=== PATIENT | male | born 1955 | race Caucasian/White ===

== ENCOUNTER 2017-01-31 07:05 | Emergency (ER) | payer OTHER ==
[~2017-01-31] VITALS: Ht 172.7 cm; Wt 101.8 kg
[~2017-01-31 07:05] MED LIST: ASPI81TA82 PO; CIAL20TA PO; COZA50TA PO; GLIP5 PO; LIPI10TA PO; METF-324 PO; OMEP20TA PO; TEST200I13 IM
[2017-01-31 07:21] VITALS: BP 125/78; PULSE 64; RESP 18; TEMP 100; O2SAT 96
[2017-01-31] MEDS ORDERED: TEST200I12 IM (07:35)
[2017-01-31] MEDS ORDERED: CIAL20TA PO (07:35)
[2017-01-31] MEDS ORDERED: MULTTAB67 PO (07:35)
[2017-01-31] MEDS ORDERED: GLIP10TA6 PO (07:35)
[2017-01-31] MEDS ORDERED: LIPI10TA PO (07:35)
[2017-01-31] MEDS ORDERED: METF1000 PO (07:35)
[2017-01-31] MEDS ORDERED: GEMF600T PO (07:36)
[2017-01-31] MEDS ORDERED: OMEP20TA PO (07:36)
[2017-01-31] MEDS ORDERED: CART300C PO (07:36)
[2017-01-31] MEDS ORDERED: APIX5TAB PO (07:36)
[2017-01-31 07:38] LABS: MEAN CORPUSCULAR HGB CONC 29.9 % (32.0-36.0)
[2017-01-31] MEDS ORDERED: SODIUM CHLOR 0.9% 1000 ML INJ 1,000 ML IV ONE (07:45)
[2017-01-31] MEDS ORDERED: PROMETHAZINE INJ 25 MG/ML VIAL IM ONE (07:45)
[2017-01-31] MEDS ORDERED: ONDANSETRON HCL 4 MG/2 ML VIAL IVP ONE (07:45)
--- NOTE | 2017-01-31 07:48 | PD ---
HPI Chief Complaint: GI Complaint Time Seen by Provider: 07:27 Travel History International Travel<30 days: No Contact w/Intl Traveler<30days: No Traveled to known affect area: No History of Present Illness HPI This patient complains of nausea vomiting and diarrhea. Started yesterday at 7: 30 PM. Duration 12 hours. Severity symptoms is moderate. No alleviating factors. He's had multiple episodes of vomiting and diarrhea. He is not having abdominal pain or any esophageal pain. His is here as a patient with the exact same symptoms. No presyncopal symptoms. PFSH Past Medical History Atrial Fibrillation: Yes High Cholesterol: Yes Diabetes: Yes Patient Takes Glucophage: Yes Diminished Hearing: No GERD: Yes Hypertension: Yes Immunizations Current: Yes Tetanus Vaccination: < 5 Years Influenza Vaccination: Yes Past Surgical History Appendectomy: Yes (AGE 15) Other Surgery: Yes (EYE) Social History Alcohol Use: Yes (3OZ DAILY) Tobacco Use: No Substance Use: No Allergies-Medications (Allergen,Severity, Reaction): Coded Allergies: No Known Allergies (Unverified , 01/31/17) Reported Meds & Prescriptions Reported Meds & Active Scripts Active Reported Gemfibrozil 600 Mg Tab 600 Mg PO BIDAC Take 30 minutes prior to breakfast and dinner. Cartia Xt (Diltiazem ER 24 HR) 300 Mg Caper 300 Mg PO DAILY Omeprazole 20 Mg Tab 20 Mg PO DAILY Eliquis (Apixaban) 5 Mg Tab 5 Mg PO BID Testosterone Cypionate Inj (Testosterone Cypionate) 200 Mg/Ml Inj 200 Mg IM WEEKLY Multiple Vitamin 1 Tab 1 Tab PO DAILY Lipitor (Atorvastatin Calcium) 10 Mg Tab 10 Mg PO HS Cialis (Tadalafil) 20 Mg Tab 20 Mg PO DAILY PRN Do not exceed 1 dose/day. Glipizide 10 Mg Tab 10 Mg PO DAILY Take 30 minutes before a meal Metformin (Metformin HCl) 1,000 Mg Tab 1,000 Mg PO BIDPC With meals Review of Systems General / Constitutional: No: Fever Eyes: No: Visual changes HENT: No: Headaches Cardiovascular: No: Chest Pain or Discomfort Respiratory: No: Shortness of Breath Gastrointestinal: Positive: Nausea, Vomiting, Diarrhea, No: Abdominal Pain Genitourinary: No: Dysuria Musculoskeletal: No: Pain Skin: No Rash Neurologic: No: Weakness Psychiatric: No: Depression Endocrine: No: Polydipsia Hematologic/Lymphatic: No: Easy Bruising Physical Exam Narrative GENERAL: Well-nourished, well-developed patient in no apparent distress. SKIN: Focused skin assessment reveals no rash and nodules. Skin is Warm and dry. HEAD: Atraumatic. Normocephalic. EYES: Pupils equal and round. No scleral icterus. No injection or drainage. ENT: No nasal bleeding or discharge. Mucous membranes pink and moist. NECK: Trachea midline. No JVD. No meningeal signs CARDIOVASCULAR: Regular rate and rhythm. No murmur appreciated. RESPIRATORY: No accessory muscle use. Clear to auscultation. Breath sounds equal bilaterally. GASTROINTESTINAL: Abdomen soft, non-tender, nondistended. Hepatic and splenic margins not palpable. MUSCULOSKELETAL: No obvious deformities. No clubbing. No cyanosis. No edema. NEUROLOGICAL: Awake and alert. No obvious cranial nerve deficits. Motor grossly within normal limits. Normal speech. PSYCHIATRIC: Appropriate mood and affect; insight and judgment normal. Data Data Last Documented VS Vital Signs Date Time Temp Pulse Resp B/P Pulse Ox O2 Delivery O2 Flow Rate FiO2 01/31/17 07:31 01/31/17 07:21 100.0 64 18 96 Orders Iv Access Insert/Monitor (01/31/17 07:37) Complete Blood Count With Diff (01/31/17 07:37) Basic Metabolic Panel (Bmp) (01/31/17 07:37) Ondansetron Inj (Zofran Inj) (01/31/17 07:45) Sodium Chlor 0.9% 1000 Ml Inj (Ns 1000 M (01/31/17 07:45) Promethazine Inj (Phenergan Inj) (01/31/17 07:45) Labs Laboratory Tests Test 01/31/17 07:45 White Blood Count 6.9 TH/MM3 Red Blood Count 6.14 MIL/MM3 Hemoglobin 13.0 GM/DL Hematocrit 43.3 % Mean Corpuscular Volume 70.6 FL Mean Corpuscular Hemoglobin 21.1 PG Mean Corpuscular Hemoglobin 29.9 % Concent Red Cell Distribution Width 17.5 % Platelet Count 214 TH/MM3 Mean Platelet Volume 8.5 FL Neutrophils (%) (Auto) 84.4 % Lymphocytes (%) (Auto) 6.3 % Monocytes (%) (Auto) 6.3 % Eosinophils (%) (Auto) 0.3 % Basophils (%) (Auto) 2.7 % Neutrophils # (Auto) 5.9 TH/MM3 Lymphocytes # (Auto) 0.4 TH/MM3 Monocytes # (Auto) 0.4 TH/MM3 Eosinophils # (Auto) 0.0 TH/MM3 Basophils # (Auto) 0.2 TH/MM3 CBC Comment AUTO DIFF Sodium Level 139 MEQ/L Potassium Level 4.3 MEQ/L Chloride Level 103 MEQ/L Carbon Dioxide Level 27.1 MEQ/L Anion Gap 9 MEQ/L Blood Urea Nitrogen 23 MG/DL Creatinine 1.20 MG/DL Estimat Glomerular Filtration 61 ML/MIN Rate Random Glucose 220 MG/DL Calcium Level 8.3 MG/DL [facility] Medical Decision Making Medical Screen Exam Complete: Yes Emergency Medical Condition: Yes Medical Record Reviewed: Yes Differential Diagnosis Gastroenteritis, food poisoning, colitis, dehydration Narrative Course I have reviewed the patient's electronic medical record. 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 He is not hypotensive or tachycardic or having any pain IV placed I gave him 1 L normal saline IV and IV Zofran and IM Phenergan CBC is normal Metabolic profile shows minor hyperglycemia of 220 Abdomen is soft and benign and nontender Patient's had no vomiting while here. He is now euvolemic. Gradual resolution is expected. I think he has a gastroenteritis Diagnosis Primary Impression: Nausea vomiting and diarrhea Additional Instructions: The patient was advised to follow up with their physician and return if they worsen. I have recommended clear liquids for 24 hours, then gradually advance as tolerated. Med/Other Pt SpecificInfo: Prescription(s) given Scripts Ondansetron (Zofran)4 Mg Tab4 Mg PO Q6HR PRN (NAUSEA OR VOMITING) #12 TAB Ref 0 Prov:Toño Hernandez MD 01/31/17 Disposition: 01 DISCHARGE HOME Condition: Stable Toño Hernandez MD Jan 31, 2017 07:48
[2017-01-31 07:54] LABS: AUTOMATED NEUTROPHIL # 5.9 TH/MM3 (1.8-7.7); BASOPHIL # 0.2 TH/MM3 (0-0.2); BASOPHIL % 2.7 % (0.0-2.0); EOSINOPHIL % 0.3 % (0.0-4.0); HEMATOCRIT 43.3 % (39.0-51.0); LYMPH % 6.3 % (9.0-44.0); LYMPHOCYTE # 0.4 TH/MM3 (1.0-4.8); MEAN CELL VOLUME 70.6 FL (80.0-100.0); MEAN CORPUSCULAR HEMOGLOBIN 21.1 PG (27.0-34.0); MONO % 6.3 % (0.0-8.0); NEUT % 84.4 % (16.0-70.0); PLATELET COUNT 214 TH/MM3 (150-450); RED BLOOD COUNT 6.14 MIL/MM3 (4.50-5.90); RED CELL DISTRIBUTION WIDTH 17.5 % (11.6-17.2); WHITE BLOOD COUNT 6.9 TH/MM3 (4.0-11.0)
[2017-01-31 08:04] LABS: POTASSIUM 4.3 MEQ/L (3.5-5.1)
[2017-01-31 08:06] LABS: BICARBONATE 27.1 MEQ/L (21.0-32.0); HEMO FLAGS AUTO DIFF
[2017-01-31] MEDS ORDERED: ZOFR4TAB PO (08:37)
[2017-01-31 08:47] VITALS: BP 110/61; PULSE 89; RESP 16; TEMP 99.1; O2SAT 97
[2017-01-31 08:47] LABS: SCAN/DIFF AUTO DIFF CONFIRMED
== END 2017-01-31 08:51 | disposition home or self-care (01) ==
LOC: PHED 07:05
DX: R11.2 Nausea with vomiting, unspecified (principal); R19.7 Diarrhea, unspecified; E11.9 Type 2 diabetes mellitus without complications; I10 Essential (primary) hypertension; E78.00 Pure hypercholesterolemia, unspecified; Z79.01 Long term (current) use of anticoagulants; Z79.84 Long term (current) use of oral hypoglycemic drugs; Z86.79 Personal history of other diseases of the circulatory system; Z87.19 Personal history of other diseases of the digestive system
CPT/HCPCS: 80048; 85025; 96361; 96372; 96374; 99284; J2405; J2550; J7030